=== PATIENT | male | born 1965 | race Caucasian/White ===

== ENCOUNTER 2020-05-02 09:47 | Inpatient (IN) | payer MEDICAID ==
[~2020-05-02] VITALS: Ht 177.8 cm; Wt 79.4 kg
[2020-05-02] MEDS ORDERED: IV NORMAL SALINE 1000 ML BAG IV ONE (10:00)
[2020-05-02] MEDS ORDERED: ACETAMINOPHEN ES 500 MG TABLET PO ONE (10:00)
[2020-05-02 10:50] LABS: BASOPHILS # (AUTO) 0.1 K/uL (0.0-8.0); BASOPHILS % (AUTO) 0.5 % (0.0-2.0); HEMOGLOBIN 9.1 g/dL (12.5-16.3); LYMPHOCYTES # (AUTO) 0.7 K/uL (20.0-40.0); LYMPHOCYTES % (AUTO) 5.4 % (20.5-51.5); MEAN CORPUSCULAR HEMOGLOBIN 20.4 uug (23.8-33.4); MEAN CORPUSCULAR HGB CONC 30 g/dL (32.5-36.3); MEAN CORPUSCULAR VOLUME 67.1 fL (73.0-96.2); MONOCYTES # (AUTO) 0.9 K/uL (2.0-10.0); MONOCYTES % (AUTO) 6.6 % (0.0-11.0); NEUTROPHILS # (AUTO) 12.2 K/uL (1.8-8.9); NEUTROPHILS % (AUTO) 87.5 % (38.5-71.5); PLATELET COUNT (AUTO) 428 K/uL (152-348); RED BLOOD CELL COUNT(AUTO) 4.46 MIL/uL (4.06-5.63); WHITE BLOOD COUNT (AUTO) 13.9 K/uL (3.6-10.2)
[2020-05-02] MEDS ORDERED: ACETAMINOPHEN ES 500 MG TABLET ONE (10:51)
[2020-05-02 10:57] LABS: CREATININE 0.9 mg/dL (0.6-1.3); POTASSIUM 4.3 mmol/L (3.5-5.1)
[2020-05-02 11:03] LABS: BILIRUBIN,DIRECT 0.5 mg/dL (0.0-0.2); BILIRUBIN,TOTAL 1.5 mg/dL (0.2-1.0); TOTAL PROTEIN, SERUM 6.3 g/dL (6.4-8.2)
[2020-05-02 11:12] LABS: ETHANOL < 3 MG/DL (0-0)
[2020-05-02 11:14] LABS: ACETAMINOPHEN < 2.0 ug/mL (10-30)
[2020-05-02] MEDS ORDERED: PIPERACILLIN SODIUM/TAZOBACTAM 3.375 G in IV DEXTROSE 5% 50 ML IV ONE (11:45)
[2020-05-02] MEDS ORDERED: VANCOMYCIN IV 1,000 MG in IV DEXTROSE 5% 250 ML IV SCH (11:45)
[2020-05-02] MEDS ORDERED: VANCOMYCIN IV 200 ML ONE (12:08)
[2020-05-02] MEDS ORDERED: PIPERACILLIN/TAZOBACTAM/D5W 50 ML IV ONE ×2 (12:08→18:22)
[2020-05-02 13:47] LABS: *BILIRUBIN,URIN NEGATIVE (NEGATIVE); *BLOOD, URINE NEGATIVE (NEGATIVE); *CLARITY,URINE CLEAR (CLEAR); *COLOR,URINE YELLOW (YELLOW); *KETONES,URINE NEGATIVE (NEGATIVE); *UROBILINOGEN,URINE 0.2 E.U./dl (NORMAL); LEUKOCYTE ESTERASE ,URINE NEGATIVE (NEGATIVE); NITRITE, URINE NEGATIVE (NEGATIVE); PH,URINE 5.5 (5.0-8.0); UGLUCOSE NEGATIVE (NEGATIVE)
[2020-05-02 13:52] LABS: *AMPHETAMINE, URINE POSITIVE (NEGATIVE); *CANNABINOID, URINE POSITIVE (NEGATIVE); *COCCAINE, URINE NEGATIVE (NEGATIVE); *PHENCYCLIDINE SCREEN,URINE NEGATIVE (NEGATIVE)
--- NOTE | 2020-05-02 14:00 | NUR ---
RA 91%, IMPROVED TO 99%, WITH O2 3 LITRE VIA NC
[2020-05-02 14:04] LABS: *OPIATE, URINE POSITIVE (NEGATIVE)
--- NOTE | 2020-05-02 14:41 | NUR ---
APARNA ALLEN ACCEPTED THE PT TO TELE.
--- NOTE | 2020-05-02 15:09 | NUR ---
PT AMBULATED TO BATHROOM WITH STEADY GAIT.
--- NOTE | 2020-05-02 16:17 | NUR ---
dinner tray provided. pt eating with good apetite.
[2020-05-02] MEDS ORDERED: ALBUTEROL SULFATE 8 GM HFA.AER.AD IH PRN (16:30)
[2020-05-02] MEDS ORDERED: ONDANSETRON 4 MG/2 ML VIAL IV PRN (16:30)
[2020-05-02] MEDS ORDERED: ONDANSETRON ODT 4 MG TAB.RAPDIS SL PRN (16:30)
[2020-05-02] MEDS ORDERED: ACETAMINOPHEN 325 MG TABLET PO PRN (16:30)
[2020-05-02] MEDS ORDERED: ACETAMINOPHEN 650 MG SUPP.RECT RC PRN (16:30)
[2020-05-02] MEDS ORDERED: ALBUTEROL SULFATE 1.25 MG/3 ML NEBU IH PRN (16:33)
[2020-05-02] MEDS: PIPERACILLIN SODIUM/TAZOBACTAM 3.375 G in IV DEXTROSE 5% 50 ML IV SCH (18:34)
[2020-05-02 20:00] VITALS: BP 115/87
--- NOTE | 2020-05-02 20:00 | NUR ---
patient arrived to unit via gurney. No s/s of distress noted. Pt agitated and yelling at staff. monitor car operator in place. Pt belonging in room.
--- NOTE | 2020-05-02 20:11 | NUR ---
Pt. admitted to room 224, under care of ADMINISTRATIVE SUPPORT COORDINATOR APARNA ALLEN. Belongs List completed
[2020-05-02] MEDS ORDERED: PIPERACILLIN/TAZOBACTAM/D5W 100 ML IV ONE (23:35)
[2020-05-03] VITALS: BP 134/86
[2020-05-03] MEDS: VANCOMYCIN IV 750 MG in IV DEXTROSE 5% 250 ML IV SCH ×2 (00:09→05:43)
[2020-05-03] MEDS: LORAZEPAM 2 MG/1 ML VIAL IV PRN ×3 (01:30→21:13)
--- NOTE | 2020-05-03 03:40 | NUR ---
Pt guarded and verbally abusive while analyzing belongings upon admission. Pt became agitated and began verbalizing impartial threats and name calling as we sifted through, confiscated contraband. Belongings listed indicated pt had cigarettes, unable to locate within belongings, pt denied being in possession of cigarettes and further contraband, increased agitation with questioning. Upon transferring patient to the third floor, discovered a black tar like substance in a small clear bag underneath the bed. Notified President [employer] and Security of suspected contraband. Security now in possession. Gave hand off report to JUAQUIN Cabrera on 3rd floor and made aware of finding.
--- NOTE | 2020-05-03 03:45 | NUR ---
Escorted pt via wheelchair to 3rd floor. Pt was stable but was nodding off in wheelchair during transfer. Admitted to [facility] and is Sinus Tachy at 113 BPM on monitor. No SOB or pain noted. Pt was cooperative. Assessment was complete. Call light within reach and bed is locked and in lowest position. No other issues or concerns at this time.
[2020-05-03] MEDS: PIPERACILLIN SODIUM/TAZOBACTAM 3.375 G in IV DEXTROSE 5% 50 ML IV SCH ×5 (03:54→22:00)
[2020-05-03 05:51] VITALS: BP 121/92
[2020-05-03 07:56] LABS: BASOPHILS % (AUTO) 0.1 % (0.0-2.0); HEMATOCRIT 25.4 % (36.7-47.1); HEMOGLOBIN 7.8 g/dL (12.5-16.3); LYMPHOCYTES # (AUTO) 0.7 K/uL (20.0-40.0); LYMPHOCYTES % (AUTO) 4.2 % (20.5-51.5); MEAN CORPUSCULAR HEMOGLOBIN 20.8 uug (23.8-33.4); MEAN CORPUSCULAR HGB CONC 31 g/dL (32.5-36.3); MEAN CORPUSCULAR VOLUME 67.8 fL (73.0-96.2); MONOCYTES # (AUTO) 1.1 K/uL (2.0-10.0); MONOCYTES % (AUTO) 6.5 % (0.0-11.0); NEUTROPHILS # (AUTO) 14.8 K/uL (1.8-8.9); NEUTROPHILS % (AUTO) 89.2 % (38.5-71.5); PLATELET COUNT (AUTO) 360 K/uL (152-348); RED BLOOD CELL COUNT(AUTO) 3.74 MIL/uL (4.06-5.63); WHITE BLOOD COUNT (AUTO) 16.6 K/uL (3.6-10.2)
[2020-05-03 08:08] LABS: BILIRUBIN,TOTAL 0.9 mg/dL (0.2-1.0); CREATININE 0.9 mg/dL (0.6-1.3); POTASSIUM 4.1 mmol/L (3.5-5.1); TOTAL PROTEIN, SERUM 4.9 g/dL (6.4-8.2)
--- NOTE | 2020-05-03 11:18 | NUR ---
WOUND CARE CONSULT: PT PRESENTS WITH LEFT PLANTAR FOOT ULCER, PRESENT ON ADMISSION. RECOMMEND DPM CONSULT. DR GOMEZ NOTIFIED OF CONSULT REQUEST. PT IS INDEPENDENT WITH BED MOBILITY AND IS CONTINENT. MD IN AGREEMENT WITH PLAN OF CARE.
--- NOTE | 2020-05-03 11:23 | NUR ---
This SW attempted to complete a professor of social work assessment for this patient. Reason for assessment is homelessness, and polysubstance use. Patient is asleep. SW spoke with patient's nurse Darwin, who stated that patient was agitated earlier today, however is currently asleep. Darwin stated that Darwin will let this SW know when patient is awake. SW to follow-up with patient at a later time.
[2020-05-03 11:37] VITALS: BP 112/82
[2020-05-03] MEDS ORDERED: FUROSEMIDE 40 MG/4 ML VIAL IV ONE (12:00)
[2020-05-03] MEDS ORDERED: IV NS 1000 ML 1,000 ML IV PRN (13:45)
[2020-05-03] MEDS: VANCOMYCIN IV 1,000 MG in IV DEXTROSE 5% 250 ML IV SCH ×2 (15:38→22:00)
[2020-05-03] MEDS ORDERED: LORAZEPAM 2 MG/1 ML VIAL IV ONE (15:40)
[2020-05-03 16:00] VITALS: BP 121/70
--- NOTE | 2020-05-03 18:39 | NUR ---
patient is alert and oriented to name only. he requires frequent reality orientation and redirection during conversation, he is unable to maintain linear and logical conversation. patient is aggressive, hostile, and becomes easily agitated. patient is uncooperative with staff. he is noted to be speaking to unknown others in the room. patient given PRN Ativan IV for agitation. Patient states that he wants access to his wallet so he can get his Suboxone, and asking staff to let him leave so he can do heroin and meth. patient constantly taking off his NC and throwing it on the floor, patient ripped off tele leads and monitor and threw on floor. patient provided with education about importance of prescribed treatments but he is refuses to follow direction from staff and throws everything on the flood, gets angry and yells incoherently. patient also ripped out IV access from left wrist. this ticket writer attempt to reinsert but patient became angry and refused. patient provided with education but be is refusing to participate.
--- NOTE | 2020-05-03 18:56 | NUR ---
Psych consult ordered per MANAGER TALENT ACQUISITION. Dr. Pierre, psychiatrist, called and message left.
[2020-05-03 20:27] VITALS: BP 107/73
--- NOTE | 2020-05-03 22:00 | NUR ---
evelyn segura np made aware that patient is refusing COVID negative results, tele monitor, IV line, antibiotics, and tylenol tonight. patient needs to be cleared from psych to leave AMA.
[2020-05-04 00:09] VITALS: BP 111/58
[2020-05-04] MEDS: PIPERACILLIN SODIUM/TAZOBACTAM 3.375 G in IV DEXTROSE 5% 50 ML IV SCH ×2 (03:20→09:43)
[2020-05-04 04:27] VITALS: BP 118/83
[2020-05-04] MEDS: VANCOMYCIN IV 1,000 MG in IV DEXTROSE 5% 250 ML IV SCH (05:03)
[2020-05-04 06:59] LABS: CREATININE 0.8 mg/dL (0.6-1.3); POTASSIUM 2.9 mmol/L (3.5-5.1)
--- NOTE | 2020-05-04 07:30 | NUR ---
Received patient in bed, no signs and symptoms of pain or respiratory distress. Patient refused oxygen but saturating 99%. Remains non-compliant with POC.
--- NOTE | 2020-05-04 10:00 | NUR ---
PATIENT REFUSED PICTURE TAKING LEFT FOOT WANTS TO GO AMA
--- NOTE | 2020-05-04 10:05 | NUR ---
PATIENT REFUSED TREATMENT, WANTS TO SMOKE AND GO HOME. DR MARTINS NOTIFIED . SEE NOTES
[2020-05-04] MEDS ORDERED: POTASSIUM CHLORIDE 20 MEQ TAB.PRT.SR PO SCH (10:30)
--- NOTE | 2020-05-04 10:41 | NUR ---
K NOT GIVEN PATIENT WENT AMA
--- NOTE | 2020-05-04 14:42 | NUR ---
ROWENA is unable to follow-up with the patient today, to complete SS assessment, since patient has left AMA. No further SS interventions needed at this time.
== END 2020-05-04 10:00 | disposition left against medical advice (07) | DRG 720 ==
LOC: ER 09:47 → TRANSITION 16:17 → TELE 18:15 → TELE3 05-03 03:30
PROVIDERS: ADMIT Nurse Practitioner Acute Care; ATTEND Student in an Organized Health Care Education/Training Program
DX: A41.9 Sepsis, unspecified organism (principal); J18.9 Pneumonia, unspecified organism; G92 Toxic encephalopathy; I21.4 Non-ST elevation (NSTEMI) myocardial infarction; I25.10 Atherosclerotic heart disease of native coronary artery without angina pectoris; I50.23 Acute on chronic systolic (congestive) heart failure; M20.42 Other hammer toe(s) (acquired), left foot; M20.41 Other hammer toe(s) (acquired), right foot; F15.10 Other stimulant abuse, uncomplicated; F11.10 Opioid abuse, uncomplicated; Z59.0 Homelessness; L03.116 Cellulitis of left lower limb; D64.9 Anemia, unspecified; E87.6 Hypokalemia; Z20.822 Contact with and (suspected) exposure to COVID-19; Z91.19 Patient's noncompliance with other medical treatment and regimen; F10.10 Alcohol abuse, uncomplicated; Z87.891 Personal history of nicotine dependence; L84 Corns and callosities; L97.529 Non-pressure chronic ulcer of other part of left foot with unspecified severity; Z95.1 Presence of aortocoronary bypass graft
CPT/HCPCS: 36415; 70030-TC; 71045; 73630; 83605; 83615; 85025; 86140; 87040; 93005; A4663; A9150; G0378; G0480; J1940; J2060; J2543; J3370; J3535; J7030; J7060; U0003